=== PATIENT | male | born 1960 | race Caucasian/White ===

== ENCOUNTER → 2017-02-16 | Outpatient (CLI) | payer OTHER ==
[2016-07-21 09:54] VITALS: BP 148/88
--- NOTE | 2017-02-16 10:33 | MRI ---
STUDY: MRI OF THE BRAIN WITHOUT AND WITH GADOLINIUM HISTORY: Headaches. Frequent headaches and dizziness. Technique: Multiplanar multi-sequence MRI of the brain was obtained utilizing standard departmental protocol. Sagittal and axial T1, axial T2, FLAIR, diffusion (DWI/ADC) images through the brain were performed. 19 cc of Omniscan was administered intravenously without reported complication following acquisition of informed written consent. Post gadolinium axial and coronal T1 weighted images were also perform ed and reviewed. Comparison: Head CT dated July 21, 2016. Findings: Pre gadolinium brain: The sulci, cisterns and ventricles are age appropriate. There are thin conflue nt and scattered foci of T2 prolongation in the periventricular and subcortical white matter of both hemispheres. This is a nonspecific finding which likely represents mild microangiopathic change in a patient of this age. There is no evidence of acute territorial infarction, hemorrhage, mass, mass effect, or midline shif t. There are no abnormal intra-axial or extra-axial fluid collections. The major intracranial vascular flow voids appear intact. The right vertebral artery is dominant. Th ere is bilateral aphakia. Post gadolinium brain: Following the uneventful administration of intravenous gadolinium, there is n o evidence of abnormal parenchymal or leptomeningeal enhancement. IMPRESSION: 1. No evidence of acute intracranial abnormality. 2. Nonspecific white matter change. Reported By:
== END ==
LOC: RAD 08:27
PROVIDERS: ATTEND Psychiatry & Neurology Neurology
DX: R51 Headache (principal)
CPT/HCPCS: 70552

== ENCOUNTER → 2017-03-05 | Outpatient (CLI) | payer OTHER ==
[2016-07-21 09:54] VITALS: BP 148/88
== END ==
LOC: RT 14:24
PROVIDERS: ATTEND Psychiatry & Neurology Neurology
DX: R42 Dizziness and giddiness (principal)
CPT/HCPCS: 95819

== ENCOUNTER → 2017-03-08 | Outpatient (CLI) | payer OTHER ==
[2016-07-21 09:54] VITALS: BP 148/88
--- NOTE | 2017-03-08 16:35 | MRI ---
HISTORY: Cervical pain. Study: MRI cervical spine without contrast. Comparison: CT cervical spine dated August 01 2016. Technique: Multiplanar multisequence MRI of the cervical spine was obtained utilizing standard depar tmental protocol. Findings: The visualized posterior fossa appears normal. No cerebellar tonsillar ectopia. Patient is status po st anterior cervical fusion at C4-5 with associated disc spacer. There also appears to be congenital versus surgical fusion at C5 through C7. No acute fracture or listhesis. Visualized bone marrow is otherwise unremarkable. A nerve stimulator is seen posterior to the cervical spinal cord. The visual ized spinal cord demonstrates normal course, caliber, and signal characteristics. C2 -- C3: Small disc bulge without significant neural foraminal narrowing or spinal canal stenosis. C3 -- C4: Broad-based disc bulge and associated uncovertebral hypertrophy causing moderate bilateral neural foraminal narrowing. Spinal canal stenosis to 10 mm. C4 -- C5: No significant disc bulge, neural foraminal narrowing, or spinal canal stenosis. C5 -- C6: No significant disc bulge, neural foraminal narrowing, or spinal canal stenosis. C6 -- C7: No significant disc bulge, neural foraminal narrowing, or spinal canal stenosis. C7 -- T1: No significant disc bulge, neural foraminal narrowing, or spinal canal stenosis. IMPRESSION: 1. Postsurgical changes as above. 2. Broad-based disc bulge at C3-C4 causing moderate bilateral neural foraminal narrowing and spinal canal stenosis to 10 mm. Reported By:
== END | disposition home or self-care (01) ==
LOC: RAD 13:12
PROVIDERS: ATTEND Psychiatry & Neurology Neurology
DX: M50.21 Other cervical disc displacement, high cervical region (principal)
CPT/HCPCS: 72141